=== PATIENT | female | born 1970 | race Two or more races ===

== ENCOUNTER 2022-07-17 20:03 | Emergency (ER) | payer MEDICAID, OTHER ==
[~2022-07-17] VITALS: Ht 172.7 cm; Wt 113.0 kg
[2022-07-17 20:31] VITALS: BP 154/87
[2022-07-17] MEDS ORDERED: SODIUM CHLORIDE 0.9% 1,000 ML IV ONE (21:15)
[2022-07-17] MEDS ORDERED: HYDROmorphone HCL 2 MG/ML VL/or syr IV ONE (21:15)
[2022-07-17] MEDS ORDERED: SODIUM CHLORIDE 0.9% 500 ML IVB ONE (21:15)
[2022-07-17] MEDS ORDERED: METOCLOPRAMIDE HCL 5MG/ml INJ 2ml VIAL IV ONE (21:15)
[2022-07-17] MEDS ORDERED: IOHEXOL 300 MG/ML 100ML BOTTLE IJ ONE (21:17)
[2022-07-17 22:07] LABS: Basophils # (auto) 0 10 ^3/uL (0-0.2); Eosinophils # (auto) 0.1 10 ^3/uL (0-0.8); Monocytes # (auto) 0.4 10 ^3/uL (0-1.3); Nucleated Red Blood Cells % 0.1 %; White Blood Cell 6.5 10^3/uL (4.4-10.8)
[2022-07-17 22:08] LABS: Basophils % (auto) 0.5 % (0.0-2.0); Eosinophils % (auto) 0.8 % (0.0-7.0); Hematocrit 33.1 % (36.0-46.0); Hemoglobin 10.4 g/dL (12.2-16.2); Lymphocytes # (auto) 1.5 10 ^3/uL (0.4-5.4); Lymphocytes % (auto) 22.9 % (10.0-50.0); Mean Corpuscular Hemoglobin 24.5 pg (28.0-32.0); Mean Corpuscular Hgb Conc. 31.5 g/dL (32.0-36.0); Mean Corpuscular Volume 77.8 fL (80.0-100.0); Neutrophils # (auto) 4.5 10 ^3/uL (1.6-8.6); Neutrophils % (auto) 69.8 % (37.0-80.0); Red Blood Cells 4.25 10^6/uL (4.0-5.20); Red Cell Distribution Width 15.9 % (11.8-14.3)
[2022-07-17 22:21] LABS: Albumin 3.2 g/dL (3.4-5.0); BUN/Creatinine Ratio 30.1; Magnesium 1.6 mg/dL (1.6-2.6); Potassium 4.6 mmol/L (3.5-5.1)
[2022-07-17 22:24] LABS: Bilirubin, Total 0.4 mg/dL (0.2-1.0); Total Protein 6.6 g/dL (6.4-8.2)
[2022-07-17] MEDS ORDERED: ERYT-124 PO (23:36)
[2022-07-17] MEDS ORDERED: METO-281 PO (23:36)
[2022-07-17] MEDS ORDERED: PANT40TA2 PO (23:36)
[2022-07-17] MEDS ORDERED: GABA300C10 PO (23:36)
[2022-07-17] MEDS ORDERED: TRAM50TA2 PO (23:36)
== END 2022-07-18 03:14 | disposition home or self-care (01) ==
LOC: EDBD 20:03 → ER 20:09
DX: K31.84 Gastroparesis (principal); E66.01 Morbid (severe) obesity due to excess calories; E11.65 Type 2 diabetes mellitus with hyperglycemia; D50.9 Iron deficiency anemia, unspecified; I45.10 Unspecified right bundle-branch block; J44.9 Chronic obstructive pulmonary disease, unspecified; E78.5 Hyperlipidemia, unspecified; Z87.442 Personal history of urinary calculi; Z68.37 Body mass index [BMI] 37.0-37.9, adult
CPT/HCPCS: 36415; 71045; 74177; 80053; 83690; 83735; 85025; 93005; 99285; Q9967